=== PATIENT | male | born 1995 | race African-American/Black ===

== ENCOUNTER 2017-09-09 12:42 | Emergency (ER) | payer SELFPAY ==
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
[2017-09-09 14:06] VITALS: BP 143/90
== END 2017-09-09 14:00 | disposition home or self-care (01) ==
LOC: ED 12:42
DX: S09.90XA Unspecified injury of head, initial encounter (principal); V49.9XXA Car occupant (driver) (passenger) injured in unspecified traffic accident, initial encounter; Y93.9 Activity, unspecified; Y99.9 Unspecified external cause status
CPT/HCPCS: 70450; 99283